=== PATIENT | male | born 1940 | race Caucasian/White ===

== ENCOUNTER 2016-04-20 08:13 | Inpatient (IN) | payer OTHER ==
[2016-04-20] VITALS (13 sets, daily range): BP systolic 122–162; BP diastolic 71–102
[~2016-04-20] VITALS: Ht 180.3 cm; Wt 112.8 kg
[~2016-04-20 08:13] MED LIST: ALLOPURINOL100 MG PO; AMLODIPINE BESYL5 MG PO; ASPIR 8181 M1 PO; BACTRIM,SEPT1 TABLET PO; BETAMETHASONE D45 G1 TP; BUSPAR10 MG PO; CITALOPRAM HBR20 MG PO; CITALOPRAM HBR40 MG PO; CLOPIDOGREL75 MG PO; COZAAR50 MG PO; HYZAAR 100-21 TABLET PO; IMDUR30 MG PO; IRON18 MG PO; LANTUS100 UNIT/1 SQ; LASIX10 MG PO; LIPITOR40 MG PO; LOPRESSOR100 M1 PO; LOPRESSOR50 MG PO; Lasix PO; MYRBETRIQ50 MG PO; NITROSTAT0.4 MG SL; PROTONIX40 MG PO; RANEXA500 MG PO; RANITIDINE HCL150 MG PO; TRILIPIX135 MG PO; VESICARE10 MG PO; VITAMIN D10000 UNIT PO; Vitamin D, Drisdol PO
[2016-04-20 08:36] LABS: POINT-OF-CARE METER ID UU13113778
[2016-04-20 08:53] LABS: EOSINOPHIL (%) 0.3 % (0-5); HEMATOCRIT 42.6 % (38.0-50.0); IMMATURE GRANULOCYTE (%) 0.4 % (0.0-0.7); IMMATURE GRANULOCYTE COUNT 0.6 K/uL; LYMPHOCYTE COUNT 1.1 K/uL (1.0-2.8); MCHC 35.2 G/DL (30.0-36.0); MCV 79.6 FL (86-99); MEAN PLAT.VOLUME 10.8 uM^3 (9.0-12.4); MONOCYTE (%) 3.5 % (3-12); MONOCYTE COUNT 0.5 K/uL (0-0.8); NEUTROPHIL (%) 87.9 % (45-76); PLATELET COUNT 206 K/uL (156-360); RBC DIS.WIDTH-CV 13.9 % (11.8-14.6); RBC DIS.WIDTH-SD 39.5 % (39-53); RED BLOOD COUNT 5.35 M/uL (4.00-5.50)
[2016-04-20 09:04] LABS: CHLORIDE 103 mEq/L (99-109); POTASSIUM 4.5 mEq/L (3.7-5.4); SODIUM 136 mEq/L (136-147)
[2016-04-20 09:05] LABS: WHITE BLOOD COUNT 13.7 K/uL (4.1-10.2)
[2016-04-20 09:07] LABS: ANION GAP 14 MEQ/L (2-14)
[2016-04-20 09:09] LABS: GFR ESTIMATE (CALCULATED) 28 mL/min/
[2016-04-20 09:10] LABS: UREA NITROGEN (BUN) 27 mg/dL (9-23)
[2016-04-20 09:13] LABS: GLUCOSE 428 mg/dL (70-99)
[2016-04-20 09:37] LABS: ALKALINE PHOSPHATASE 180 IU/L (3-129)
[2016-04-20 09:40] LABS: DIRECT BILIRUBIN 0.4 mg/dL (0.0-0.3)
[2016-04-20 09:43] LABS: TROP-I INTERPRETATION NEGATIVE; TROPONIN-I 0.03 ng/mL (0.0-0.30)
[2016-04-20 10:10] LABS: INFLUENZA A VIRAL ANTIGEN POSITIVE; INFLUENZA B VIRAL ANTIGEN NEGATIVE
[2016-04-20 10:11] LABS: CARBON DIOXIDE (BICARBONATE) 18.9 MEQ/L (20-31)
[2016-04-20 11:31] LABS: ADD MIUA? YES; BILIRUBIN NEGATIVE; BLOOD MODERATE; COLOR YELLOW ((YELLOW)); GLUCOSE (STRIP) >=500; KETONES NEGATIVE; LEUKOCYTES MODERATE; NITRITE NEGATIVE; PROTEIN (STRIP) >=500; SPECIFIC GRAVITY 1.018 (1.000-1.030); UROBILINOGEN 0.2 MG/DL (0.2-1.0)
[2016-04-20 12:19] LABS: BACTERIA 3+ /HPF; EPITHELIAL CELLS RARE /HPF; MUCUS TRACE /LPF; RED BLOOD CELLS 20-30 /HPF (0-5); UCUL ADDED? YES; WHITE BLOOD CELLS TNTC /HPF (0-5); WHITE BLOOD CELLS CLUMP FEW /HPF (0-5)
[2016-04-20] MEDS ORDERED: DIAZEPAM5 MG PO (12:19)
[2016-04-20] MEDS ORDERED: BUSPAR10 MG PO (12:19)
[2016-04-20] MEDS ORDERED: IMDUR30 MG PO (12:20)
[2016-04-20] MEDS ORDERED: LOSARTAN POTASS50 MG PO (12:20)
[2016-04-20] MEDS ORDERED: MYRBETRIQ50 MG PO (12:20)
[2016-04-20] MEDS ORDERED: PLAVIX75 MG PO (12:20)
[2016-04-20 12:44] LABS: POINT-OF-CARE METER ID UU13113702
[2016-04-20 18:31] LABS: TROP-I INTERPRETATION NEGATIVE; TROPONIN-I 0.05 ng/mL (0.0-0.30)
[2016-04-21 01:16] LABS: TROP-I INTERPRETATION NEGATIVE; TROPONIN-I 0.04 ng/mL (0.0-0.30)
[2016-04-21 04:34] LABS: BASE EXCESS -9.8 mEq/L (-3 to +3); BICARBONATE 15.3 mEq/L (22-26); CARBOXY HGB 1.8 % (0-5); METHEMOGLOBIN 1.3 % (0-1.5); PCO2 31 mm Hg (35-45); PO2 93 mm Hg (80-100)
[2016-04-21 04:35] LABS: COMMENTS - BLOOD GASES A+C+; DEVICE NC; O2 FLOW 3 L/MIN; SITE RR; TOTAL RESP RATE 26 resp/min
[2016-04-21 04:49] LABS: POINT-OF-CARE METER ID UU14174225
[2016-04-21 04:53] LABS: HEMATOCRIT 41.5 % (38.0-50.0); MCH 27.5 PG (29.0-34.0); MCHC 34.2 G/DL (30.0-36.0); MCV 80.3 FL (86-99); MEAN PLAT.VOLUME 10.7 uM^3 (9.0-12.4); PLATELET COUNT 173 K/uL (156-360); RBC DIS.WIDTH-CV 14.1 % (11.8-14.6); RBC DIS.WIDTH-SD 40.6 % (39-53); RED BLOOD COUNT 5.17 M/uL (4.00-5.50); WHITE BLOOD COUNT 9.3 K/uL (4.1-10.2)
[2016-04-21 05:04] LABS: CHLORIDE 103 mEq/L (99-109); POTASSIUM 4.3 mEq/L (3.7-5.4); SODIUM 135 mEq/L (136-147)
[2016-04-21 05:06] LABS: GLUCOSE 349 mg/dL (70-99)
[2016-04-21 05:07] LABS: ANION GAP 14 MEQ/L (2-14)
[2016-04-21 05:09] LABS: GFR ESTIMATE (CALCULATED) 27 mL/min/
[2016-04-21 05:11] LABS: UREA NITROGEN (BUN) 29 mg/dL (9-23)
[2016-04-21 07:34] VITALS: BP 132/86
[2016-04-21 07:56] LABS: POINT-OF-CARE METER ID UU14174225
[2016-04-21 11:26] VITALS: BP 102/69
[2016-04-21 11:28] LABS: POINT-OF-CARE METER ID UU14174225
[2016-04-21 15:59] VITALS: BP 108/65
[2016-04-21 16:35] LABS: POINT-OF-CARE METER ID UU14188625
[2016-04-21 19:38] VITALS: BP 108/66
[2016-04-21 23:49] VITALS: BP 118/71
[2016-04-22] VITALS (7 sets, daily range): BP systolic 100–126; BP diastolic 58–75
[2016-04-22 08:44] LABS: POINT-OF-CARE METER ID UU14174225
[2016-04-22 09:21] LABS: ANION GAP 10 MEQ/L (2-14); CHLORIDE 101 MEQ/L (99-109); GLUCOSE 339 mg/dL (70-99); POTASSIUM 4.5 MEQ/L (3.7-5.4); SAMPLE HEMOLYSIS CHECK 0; SAMPLE ICTERIC CHECK 0; SAMPLE LIPEMIA CHECK 0; SODIUM 130 MEQ/L (136-147)
[2016-04-22 09:22] LABS: GFR ESTIMATE (CALCULATED) 21 mL/min/; UREA NITROGEN (BUN) 45 mg/dL (9-23)
[2016-04-22 12:19] LABS: POINT-OF-CARE METER ID UU14188625
[2016-04-22 12:43] LABS: Estimated Average Glucose 237 mg/dL (70-123); HEMOGLOBIN A1c (GLYCOHEMOGLOB) 9.9 % HGB (Below 5.7)
[2016-04-22 17:16] LABS: POINT-OF-CARE METER ID UU14174225
[2016-04-23 03:33] VITALS: BP 132/80
[2016-04-23 07:30] LABS: ANION GAP 9 MEQ/L (2-14); CHLORIDE 101 MEQ/L (99-109); GFR ESTIMATE (CALCULATED) 19 mL/min/; GLUCOSE 339 mg/dL (70-99); POTASSIUM 4.2 MEQ/L (3.7-5.4); SAMPLE HEMOLYSIS CHECK 0; SAMPLE ICTERIC CHECK 0; SAMPLE LIPEMIA CHECK 0; SODIUM 128 MEQ/L (136-147); UREA NITROGEN (BUN) 49 mg/dL (9-23)
[2016-04-23 07:39] VITALS: BP 137/77
[2016-04-23 07:42] LABS: EOSINOPHIL (%) 0.1 % (0-5); HEMATOCRIT 31.9 % (38.0-50.0); IMMATURE GRANULOCYTE (%) 0.3 % (0.0-0.7); LYMPHOCYTE COUNT 0.5 K/uL (1.0-2.8); MCH 27.6 PG (29.0-34.0); MCHC 34.5 G/DL (30.0-36.0); MCV 80.2 FL (86-99); MEAN PLAT.VOLUME 11.2 uM^3 (9.0-12.4); MONOCYTE (%) 7.1 % (3-12); MONOCYTE COUNT 0.6 K/uL (0-0.8); NEUTROPHIL (%) 86.9 % (45-76); NEUTROPHIL COUNT 7.5 K/uL (1.8-6.4); PLATELET COUNT 136 K/uL (156-360); RBC DIS.WIDTH-CV 13.6 % (11.8-14.6); RBC DIS.WIDTH-SD 39.6 % (39-53); WHITE BLOOD COUNT 8.6 K/uL (4.1-10.2)
[2016-04-23 07:54] LABS: RED BLOOD COUNT 3.98 M/uL (4.00-5.50)
[2016-04-23 11:08] VITALS: BP 143/83
[2016-04-23 15:13] VITALS: BP 135/81
[2016-04-23 19:46] VITALS: BP 130/78
[2016-04-23 21:42] LABS: POINT-OF-CARE METER ID UU14188625
[2016-04-24] VITALS (7 sets, daily range): BP systolic 140–165; BP diastolic 84–98
[2016-04-24 07:26] LABS: ANION GAP 7 MEQ/L (2-14); CHLORIDE 106 MEQ/L (99-109); GFR ESTIMATE (CALCULATED) 19 mL/min/; GLUCOSE 107 mg/dL (70-99); POTASSIUM 4.2 MEQ/L (3.7-5.4); SAMPLE HEMOLYSIS CHECK 0; SAMPLE ICTERIC CHECK 0; SAMPLE LIPEMIA CHECK 0; SODIUM 135 MEQ/L (136-147); UREA NITROGEN (BUN) 50 mg/dL (9-23)
[2016-04-24 11:32] LABS: POINT-OF-CARE METER ID UU14174225
[2016-04-24 16:49] LABS: POINT-OF-CARE METER ID UU14174225
[2016-04-24 21:15] LABS: POINT-OF-CARE METER ID UU14174225
[2016-04-25 04:07] VITALS: BP 142/84
[2016-04-25 07:05] LABS: ANION GAP 10 MEQ/L (2-14); CHLORIDE 108 MEQ/L (99-109); GFR ESTIMATE (CALCULATED) 19 mL/min/; GLUCOSE 159 mg/dL (70-99); POTASSIUM 4.3 MEQ/L (3.7-5.4); SAMPLE HEMOLYSIS CHECK 0; SAMPLE ICTERIC CHECK 0; SAMPLE LIPEMIA CHECK 0; SODIUM 138 MEQ/L (136-147); UREA NITROGEN (BUN) 51 mg/dL (9-23)
[2016-04-25 07:43] VITALS: BP 140/82
[2016-04-25 11:52] VITALS: BP 118/71
[2016-04-25 12:38] LABS: POINT-OF-CARE METER ID UU14174225
[2016-04-25] MEDS ORDERED: VANTIN200 MG PO (12:49)
[2016-04-25] MEDS ORDERED: LEVEMIR100 UNIT/2 SC (12:59)
== END 2016-04-25 16:13 | disposition home health service (06) | DRG 871 ==
LOC: EME 08:13 → EDOF 11:50 → 5SOUTH 11:50 → EDOF 12:02 → 5SOUTH 16:53
PROVIDERS: Emergency Medicine; Hospitalist; Internal Medicine Nephrology
DX: A41.51 Sepsis due to Escherichia coli [E. coli] (principal); N17.0 Acute kidney failure with tubular necrosis; J96.01 Acute respiratory failure with hypoxia; N39.0 Urinary tract infection, site not specified; R65.20 Severe sepsis without septic shock; J10.1 Influenza due to other identified influenza virus with other respiratory manifestations; J20.9 Acute bronchitis, unspecified; I13.0 Hypertensive heart and chronic kidney disease with heart failure and stage 1 through stage 4 chronic kidney disease, or unspecified chronic kidney disease; I50.32 Chronic diastolic (congestive) heart failure; I25.810 Atherosclerosis of coronary artery bypass graft(s) without angina pectoris; E87.5 Hyperkalemia; N18.3 Chronic kidney disease, stage 3 (moderate); E11.22 Type 2 diabetes mellitus with diabetic chronic kidney disease; E11.21 Type 2 diabetes mellitus with diabetic nephropathy; E11.40 Type 2 diabetes mellitus with diabetic neuropathy, unspecified; E78.5 Hyperlipidemia, unspecified; G47.33 Obstructive sleep apnea (adult) (pediatric); N28.1 Cyst of kidney, acquired; N31.9 Neuromuscular dysfunction of bladder, unspecified; R32 Unspecified urinary incontinence; Z96.0 Presence of urogenital implants; Z96.651 Presence of right artificial knee joint; Z77.22 Contact with and (suspected) exposure to environmental tobacco smoke (acute) (chronic); Z95.1 Presence of aortocoronary bypass graft; Z95.5 Presence of coronary angioplasty implant and graft; Z79.4 Long term (current) use of insulin; Z79.02 Long term (current) use of antithrombotics/antiplatelets; Z79.82 Long term (current) use of aspirin; Z98.1 Arthrodesis status
CPT/HCPCS: 36600; 71010; 74176; 76770; 80048; 80069; 80076; 81003; 82009; 82010; 82570; 82803; 82948; 83036; 83605; 83880; 84156; 84484; 85025; 85027; 87040; 87077; 87086; 87186; 87502; 87801; 93005; 94640; 94640 76; 94760; 94799; 99202; 99281; 99285; J0696; J1650; J1815; J2060; J2405; J2543; J3370; J7030; J7050; J7120; J7512

== ENCOUNTER 2016-07-26 19:04 | Emergency (ER) | payer OTHER ==
[~2016-07-26] VITALS: Ht 180.3 cm; Wt 117.4 kg
[~2016-07-26 19:04] MED LIST changes: +DIAZEPAM5 MG PO; +LEVEMIR100 UNIT/2 SC; +LOSARTAN POTASS50 MG PO; +PLAVIX75 MG PO; +VANTIN200 MG PO
[2016-07-26 22:59] VITALS: BP 183/96
== END 2016-07-26 23:00 | disposition home or self-care (01) ==
LOC: EME 19:04
PROC: 0HQDXZZ Repair Right Lower Arm Skin, External Approach (ICD-10-PCS; principal; 2016-07-26)
DX: S51.011A Laceration without foreign body of right elbow, initial encounter (principal); W01.198A Fall on same level from slipping, tripping and stumbling with subsequent striking against other object, initial encounter; Y93.H9 Activity, other involving exterior property and land maintenance, building and construction; Y92.007 Garden or yard of unspecified non-institutional (private) residence as the place of occurrence of the external cause; E11.9 Type 2 diabetes mellitus without complications; I25.2 Old myocardial infarction; Z79.82 Long term (current) use of aspirin; Z79.02 Long term (current) use of antithrombotics/antiplatelets; Z96.651 Presence of right artificial knee joint
CPT/HCPCS: 73080; 99281; 99284

== ENCOUNTER 2016-09-20 17:22 | Inpatient (IN) | payer OTHER ==
[~2016-09-20] VITALS: Ht 180.3 cm; Wt 116.3 kg
[2016-09-20 18:07] LABS: HEMATOCRIT 47.9 % (38.0-50.0); MCH 26.2 PG (29.0-34.0); MCHC 32.4 G/DL (30.0-36.0); MCV 80.9 FL (86-99); MEAN PLAT.VOLUME 10.2 uM^3 (9.0-12.4); PLATELET COUNT 200 K/uL (156-360); RBC DIS.WIDTH-CV 14.6 % (11.8-14.6); RBC DIS.WIDTH-SD 42.4 % (39-53); RED BLOOD COUNT 5.92 M/uL (4.00-5.50); WHITE BLOOD COUNT 11.1 K/uL (4.1-10.2)
[2016-09-20 18:17] LABS: CHLORIDE 114 mEq/L (99-109); POTASSIUM 4.1 mEq/L (3.7-5.4); SODIUM 139 mEq/L (136-147)
[2016-09-20 18:19] LABS: GLUCOSE 163 mg/dL (70-99)
[2016-09-20 18:20] LABS: ANION GAP 10 MEQ/L (2-14)
[2016-09-20 18:21] LABS: TOTAL BILIRUBIN 0.7 mg/dL (0.0-1.0)
[2016-09-20 18:22] LABS: ALKALINE PHOSPHATASE 178 IU/L (3-129)
[2016-09-20 18:23] LABS: GFR ESTIMATE (CALCULATED) 21 mL/min/
[2016-09-20 18:24] LABS: UREA NITROGEN (BUN) 56 mg/dL (9-23)
[2016-09-20 18:26] LABS: LIPASE 35 U/L (1.0-51.0)
[2016-09-20 19:38] LABS: TROP-I INTERPRETATION NEGATIVE; TROPONIN-I 0.03 ng/mL (0.0-0.30)
[2016-09-20 20:29] LABS: ADD MIUA? YES; BILIRUBIN NEGATIVE; BLOOD SMALL; COLOR YELLOW ((YELLOW)); GLUCOSE (STRIP) >=500; KETONES NEGATIVE; LEUKOCYTES NEGATIVE; NITRITE NEGATIVE; PROTEIN (STRIP) >=500; SPECIFIC GRAVITY 1.023 (1.000-1.030); UROBILINOGEN 0.2 MG/DL (0.2-1.0)
[2016-09-20 20:36] LABS: BACTERIA RARE /HPF; EPITHELIAL CELLS RARE /HPF; MUCUS 1+ /LPF; RED BLOOD CELLS NONE SEEN /HPF (0-5); UCUL ADDED? NO
[2016-09-21 04:15] VITALS: BP 150/84
[2016-09-21 06:55] VITALS: BP 124/72
[2016-09-21 07:06] LABS: ANION GAP 10 MEQ/L (2-14); CHLORIDE 115 MEQ/L (99-109); GFR ESTIMATE (CALCULATED) 21 mL/min/; GLUCOSE 135 mg/dL (70-99); POTASSIUM 4.1 MEQ/L (3.7-5.4); SAMPLE HEMOLYSIS CHECK 0; SAMPLE ICTERIC CHECK 0; SAMPLE LIPEMIA CHECK 0; SODIUM 142 MEQ/L (136-147); UREA NITROGEN (BUN) 54 mg/dL (9-23)
[2016-09-21 07:21] LABS: EOSINOPHIL (%) 3.2 % (0-5); EOSINOPHIL COUNT 0.4 K/uL (0-0.3); HEMATOCRIT 38.8 % (38.0-50.0); IMMATURE GRANULOCYTE (%) 0.5 % (0.0-0.7); IMMATURE GRANULOCYTE COUNT 0.1 K/uL; INSTRUMENT ABS NEUTROPHIL CT 7.7 K/uL; LYMPHOCYTE COUNT 1.7 K/uL (1.0-2.8); MCH 26.6 PG (29.0-34.0); MCV 83.3 FL (86-99); MEAN PLAT.VOLUME 10.2 uM^3 (9.0-12.4); MONOCYTE (%) 9.4 % (3-12); NEUTROPHIL COUNT 7.7 K/uL (1.8-6.4); PLATELET COUNT 150 K/uL (156-360); RBC DIS.WIDTH-CV 14.6 % (11.8-14.6); RBC DIS.WIDTH-SD 44.5 % (39-53); WHITE BLOOD COUNT 10.8 K/uL (4.1-10.2)
[2016-09-21 07:30] LABS: RED BLOOD COUNT 4.66 M/uL (4.00-5.50)
[2016-09-21 15:35] VITALS: BP 126/75
[2016-09-21] MEDS ORDERED: METOPROLOL TAR100 MG PO (16:11)
[2016-09-21] MEDS ORDERED: BUSPAR10 MG PO (16:12)
[2016-09-21 20:50] VITALS: BP 151/84
[2016-09-21 21:00] VITALS: BP 139/87
[2016-09-22 00:02] VITALS: BP 148/76
[2016-09-22 05:55] LABS: EOSINOPHIL (%) 3.1 % (0-5); EOSINOPHIL COUNT 0.3 K/uL (0-0.3); HEMATOCRIT 37.4 % (38.0-50.0); IMMATURE GRANULOCYTE (%) 0.7 % (0.0-0.7); IMMATURE GRANULOCYTE COUNT 0.1 K/uL; INSTRUMENT ABS NEUTROPHIL CT 5.9 K/uL; LYMPHOCYTE COUNT 1.5 K/uL (1.0-2.8); MCH 28.1 PG (29.0-34.0); MCHC 33.4 G/DL (30.0-36.0); MEAN PLAT.VOLUME 10.4 uM^3 (9.0-12.4); MONOCYTE (%) 10.7 % (3-12); MONOCYTE COUNT 0.9 K/uL (0-0.8); NEUTROPHIL (%) 67.8 % (45-76); NEUTROPHIL COUNT 5.9 K/uL (1.8-6.4); PLATELET COUNT 148 K/uL (156-360); RBC DIS.WIDTH-CV 14.7 % (11.8-14.6); RBC DIS.WIDTH-SD 45.1 % (39-53); RED BLOOD COUNT 4.45 M/uL (4.00-5.50); WHITE BLOOD COUNT 8.7 K/uL (4.1-10.2)
[2016-09-22 06:22] LABS: ANION GAP 9 MEQ/L (2-14); CHLORIDE 114 MEQ/L (99-109); GFR ESTIMATE (CALCULATED) 21 mL/min/; GLUCOSE 113 mg/dL (70-99); POTASSIUM 4.4 MEQ/L (3.7-5.4); SAMPLE HEMOLYSIS CHECK 0; SAMPLE ICTERIC CHECK 0; SAMPLE LIPEMIA CHECK 0; SODIUM 140 MEQ/L (136-147); UREA NITROGEN (BUN) 51 mg/dL (9-23)
[2016-09-22 06:51] VITALS: BP 156/74
[2016-09-22 15:57] VITALS: BP 144/76
[2016-09-22 16:34] LABS: POINT-OF-CARE METER ID UU13113725
[2016-09-22 22:17] LABS: POINT-OF-CARE METER ID UU13113725; POINT-OF-CARE USER ID 610071303
[2016-09-23 00:27] VITALS: BP 134/59
[2016-09-23 06:36] LABS: EOSINOPHIL (%) 1.4 % (0-5); EOSINOPHIL COUNT 0.1 K/uL (0-0.3); HEMATOCRIT 35.4 % (38.0-50.0); IMMATURE GRANULOCYTE (%) 0.7 % (0.0-0.7); IMMATURE GRANULOCYTE COUNT 0.1 K/uL; INSTRUMENT ABS NEUTROPHIL CT 6.7 K/uL; LYMPHOCYTE COUNT 1.2 K/uL (1.0-2.8); MCH 27.3 PG (29.0-34.0); MCHC 33.1 G/DL (30.0-36.0); MCV 82.5 FL (86-99); MEAN PLAT.VOLUME 10.2 uM^3 (9.0-12.4); MONOCYTE (%) 12.6 % (3-12); MONOCYTE COUNT 1.2 K/uL (0-0.8); NEUTROPHIL (%) 72.3 % (45-76); NEUTROPHIL COUNT 6.7 K/uL (1.8-6.4); PLATELET COUNT 145 K/uL (156-360); RBC DIS.WIDTH-CV 14.7 % (11.8-14.6); RBC DIS.WIDTH-SD 44.1 % (39-53); RED BLOOD COUNT 4.29 M/uL (4.00-5.50); WHITE BLOOD COUNT 9.2 K/uL (4.1-10.2)
[2016-09-23 06:58] LABS: ANION GAP 10 MEQ/L (2-14); CHLORIDE 114 MEQ/L (99-109); GFR ESTIMATE (CALCULATED) 23 mL/min/; GLUCOSE 132 mg/dL (70-99); POTASSIUM 4.7 MEQ/L (3.7-5.4); SAMPLE HEMOLYSIS CHECK 0; SAMPLE ICTERIC CHECK 0; SAMPLE LIPEMIA CHECK 0; SODIUM 139 MEQ/L (136-147); UREA NITROGEN (BUN) 47 mg/dL (9-23)
[2016-09-23 08:52] VITALS: BP 148/75
== END 2016-09-23 15:37 | disposition home or self-care (01) | DRG 392 ==
LOC: EME 17:22 → 5EAST 22:47 → EDOF 22:47 → 5EAST 09-21 00:43
PROVIDERS: Family Medicine
DX: K57.32 Diverticulitis of large intestine without perforation or abscess without bleeding (principal); N17.9 Acute kidney failure, unspecified; N18.3 Chronic kidney disease, stage 3 (moderate); I25.10 Atherosclerotic heart disease of native coronary artery without angina pectoris; E78.5 Hyperlipidemia, unspecified; E11.22 Type 2 diabetes mellitus with diabetic chronic kidney disease; I13.0 Hypertensive heart and chronic kidney disease with heart failure and stage 1 through stage 4 chronic kidney disease, or unspecified chronic kidney disease; F41.9 Anxiety disorder, unspecified; N28.1 Cyst of kidney, acquired; K80.20 Calculus of gallbladder without cholecystitis without obstruction; K21.9 Gastro-esophageal reflux disease without esophagitis; M19.90 Unspecified osteoarthritis, unspecified site; E87.2 Acidosis; R26.2 Difficulty in walking, not elsewhere classified; M25.569 Pain in unspecified knee; G89.29 Other chronic pain
CPT/HCPCS: 74176; 80048; 80053; 81003; 82948; 83690; 84484; 85025; 85027; 93005; 99281; 99285; J0744; J1170; J1644; J1815; J2060; J2405; J3010; J7030; S0030

== ENCOUNTER 2017-02-08 17:52 | Emergency (ER) | payer OTHER ==
[~2017-02-08] VITALS: Ht 180.3 cm; Wt 116.1 kg
[~2017-02-08 17:52] MED LIST changes: +METOPROLOL TAR100 MG PO
[2017-02-08 18:35] LABS: HEMATOCRIT 34.3 % (38.0-50.0); MCH 28.8 PG (29.0-34.0); MCHC 34.7 G/DL (30.0-36.0); MCV 83.1 FL (86-99); MEAN PLAT.VOLUME 9.7 uM^3 (9.0-12.4); PLATELET COUNT 183 K/uL (156-360); RBC DIS.WIDTH-CV 13.3 % (11.8-14.6); RBC DIS.WIDTH-SD 40.2 % (39-53); RED BLOOD COUNT 4.13 M/uL (4.00-5.50)
[2017-02-08 18:44] LABS: CHLORIDE 108 mEq/L (99-109); POTASSIUM 4.9 mEq/L (3.7-5.4); SODIUM 137 mEq/L (136-147)
[2017-02-08 18:46] LABS: GLUCOSE 226 mg/dL (70-99)
[2017-02-08 18:48] LABS: ANION GAP 11 MEQ/L (2-14)
[2017-02-08 18:50] LABS: GFR ESTIMATE (CALCULATED) 21 mL/min/
[2017-02-08 18:51] LABS: UREA NITROGEN (BUN) 50 mg/dL (9-23)
[2017-02-08 19:54] LABS: ADD MIUA? YES; BILIRUBIN NEGATIVE; BLOOD SMALL; COLOR YELLOW ((YELLOW)); GLUCOSE (STRIP) >=500; KETONES NEGATIVE; LEUKOCYTES NEGATIVE; NITRITE NEGATIVE; PROTEIN (STRIP) >=500; SPECIFIC GRAVITY 1.016 (1.000-1.030); UROBILINOGEN 0.2 MG/DL (0.2-1.0)
[2017-02-08 20:06] LABS: BACTERIA RARE /HPF; EPITHELIAL CELLS RARE /HPF; GRANULAR CASTS 0-5 /LPF; HYALINE CASTS 0-5 /LPF; MUCUS TRACE /LPF; RED BLOOD CELLS 0-5 /HPF (0-5); UCUL ADDED? NO; WHITE BLOOD CELLS 0-5 /HPF (0-5)
[2017-02-08 20:34] VITALS: BP 144/91
== END 2017-02-08 21:12 | disposition home or self-care (01) ==
LOC: EME 17:52
PROVIDERS: Emergency Medicine
DX: S09.90XA Unspecified injury of head, initial encounter (principal); W01.0XXA Fall on same level from slipping, tripping and stumbling without subsequent striking against object, initial encounter; F41.9 Anxiety disorder, unspecified; I12.9 Hypertensive chronic kidney disease with stage 1 through stage 4 chronic kidney disease, or unspecified chronic kidney disease; E11.22 Type 2 diabetes mellitus with diabetic chronic kidney disease; N18.9 Chronic kidney disease, unspecified
CPT/HCPCS: 70450; 80048; 81003; 85027; 99281; 99285

== ENCOUNTER 2017-03-23 00:57 | Inpatient (IN) | payer OTHER ==
[~2017-03-23] VITALS: Ht 180.3 cm; Wt 119.9 kg
[2017-03-23 01:27] LABS: HEMATOCRIT 32.3 % (38.0-50.0); HEMOGLOBIN 10.9 G/DL (12.5-16.6); MCH 28.3 PG (29.0-34.0); MCHC 33.7 G/DL (30.0-36.0); MCV 83.9 FL (86-99); PLATELET COUNT 200 K/uL (156-360); RBC DIS.WIDTH-CV 13.4 % (11.8-14.6); RBC DIS.WIDTH-SD 40.8 % (39-53); RED BLOOD COUNT 3.85 M/uL (4.00-5.50); WHITE BLOOD COUNT 12.2 K/uL (4.1-10.2)
[2017-03-23 01:48] LABS: CHLORIDE 115 mEq/L (99-109); POTASSIUM 4.6 mEq/L (3.7-5.4); SODIUM 142 mEq/L (136-147)
[2017-03-23 01:50] LABS: GLUCOSE 202 mg/dL (70-99)
[2017-03-23 01:54] LABS: GFR ESTIMATE (CALCULATED) 16 mL/min/ (58.99-99999)
[2017-03-23 01:55] LABS: UREA NITROGEN (BUN) 54 mg/dL (9-23)
[2017-03-23 02:47] LABS: BICARBONATE 17.5 mEq/L (22-26); CARBOXY HGB 1.5 % (0-5); COMMENTS - BLOOD GASES A+C+; FI02 21 %; METHEMOGLOBIN 1.2 % (0-1.5); PCO2 31 mm Hg (35-45); PO2 64 mm Hg (80-100); SITE RR; pH 7.36 (7.35-7.45)
[2017-03-23 02:50] LABS: APPEARANCE CLEAR ((CLEAR)); BILIRUBIN NEGATIVE; BLOOD MODERATE; COLOR YELLOW ((YELLOW)); GLUCOSE (STRIP) 150; KETONES NEGATIVE; LEUKOCYTES NEGATIVE; NITRITE NEGATIVE; PROTEIN (STRIP) >=500; SPECIFIC GRAVITY 1.018 (1.000-1.030); UROBILINOGEN 0.2 MG/DL (0.2-1.0)
[2017-03-23 02:59] LABS: ALBUMIN 3.4 g/dL (3.2-4.8)
[2017-03-23 03:02] LABS: TOTAL PROTEIN 6.5 g/dL (6.4-8.3)
[2017-03-23 03:03] LABS: TOTAL BILIRUBIN 0.5 mg/dL (0.0-1.0)
[2017-03-23 03:04] LABS: ALKALINE PHOSPHATASE 194 IU/L (3-129)
[2017-03-23 03:07] LABS: AST (GOT) 12 IU/L (2-34); DIRECT BILIRUBIN 0.2 mg/dL (0.0-0.3)
[2017-03-23 03:08] LABS: ALT (GPT) 15 IU/L (3-49); LIPASE 53 U/L (1.0-51.0)
[2017-03-23 03:09] LABS: TROP-I INTERPRETATION NEGATIVE; TROPONIN-I 0.05 ng/mL (0.0-0.30)
[2017-03-23 03:32] LABS: RED BLOOD CELLS 0-5 /HPF (0-5); WHITE BLOOD CELLS 0-5 /HPF (0-5)
[2017-03-23 03:33] LABS: BACTERIA 2+ /HPF; EPITHELIAL CELLS 1+ /HPF; UCUL ADDED? YES
[2017-03-23 03:34] LABS: MUCUS RARE /LPF
[2017-03-23] MEDS ORDERED: ATORVASTATIN CA40 MG PO (09:50)
[2017-03-23] MEDS ORDERED: LOSARTAN POTASS25 MG PO (09:52)
[2017-03-23] MEDS ORDERED: LOPRESSOR100 M1 PO (09:53)
[2017-03-23] MEDS ORDERED: ALPRAZOLAM1 MG PO (09:54)
[2017-03-23] MEDS ORDERED: ENDOCET 5-3251 EACH PO (09:55)
[2017-03-23] MEDS ORDERED: CITALOPRAM HBR40 MG PO (09:56)
[2017-03-23] MEDS ORDERED: AMLODIPINE BESY10 MG PO (09:56)
[2017-03-23] MEDS ORDERED: MYRBETRIQ50 MG PO (09:57)
[2017-03-23] MEDS ORDERED: RANITIDINE HCL150 MG PO (09:58)
[2017-03-23] MEDS ORDERED: PANTOPRAZOLE SO40 MG PO (09:58)
[2017-03-23] MEDS ORDERED: IMDUR30 MG PO (09:59)
[2017-03-23 11:53] VITALS: BP 166/78
[2017-03-23 15:17] LABS: CREATINE KINASE 111 IU/L (1-294); TOTAL CK 111 IU/L (1-294)
[2017-03-23 15:40] LABS: CK-MB 4.9 ng/mL (0.0-4.9); CKMB RELATIVE INDEX 4.4 (0.0-3.9)
[2017-03-23 20:44] VITALS: BP 140/76
[2017-03-23 21:05] LABS: UR CREATININE CONCENTRATION 135.8 MG/DL
[2017-03-24] VITALS (7 sets, daily range): BP systolic 123–169; BP diastolic 72–87
[2017-03-24 06:17] LABS: BASOPHIL (%) 0.5 % (0-1); BASOPHIL COUNT 0.1 K/uL (0-0.1); EOSINOPHIL (%) 2.3 % (0-5); EOSINOPHIL COUNT 0.3 K/uL (0-0.3); HEMATOCRIT 31.9 % (38.0-50.0); HEMOGLOBIN 10.4 G/DL (12.5-16.6); LYMPHOCYTE (%) 11.9 % (15-42); LYMPHOCYTE COUNT 1.5 K/uL (1.0-2.8); MCHC 32.6 G/DL (30.0-36.0); MONOCYTE (%) 10.5 % (3-12); MONOCYTE COUNT 1.3 K/uL (0-0.8); NEUTROPHIL (%) 73.8 % (45-76); NEUTROPHIL COUNT 9.2 K/uL (1.8-6.4); PLATELET COUNT 189 K/uL (156-360); RBC DIS.WIDTH-CV 13.5 % (11.8-14.6); RED BLOOD COUNT 3.71 M/uL (4.00-5.50); WHITE BLOOD COUNT 12.5 K/uL (4.1-10.2)
[2017-03-24 06:40] LABS: CHLORIDE 112 MEQ/L (99-109); CREATININE 4.1 MG/DL (0.6-1.3); GFR ESTIMATE (CALCULATED) 15 mL/min/ (58.99-99999); GLUCOSE 187 mg/dL (70-99); MAGNESIUM 1.6 mg/dl (1.3-2.7); PHOSPHORUS 4.3 mg/dL (2.5-4.9); SODIUM 140 MEQ/L (136-147); UREA NITROGEN (BUN) 60 mg/dL (9-23); URIC ACID 7.2 mg/dL (3.1-9.2)
[2017-03-25 03:08] VITALS: BP 126/71
[2017-03-25 07:28] LABS: CHLORIDE 109 MEQ/L (99-109); CREATININE 4.6 MG/DL (0.6-1.3); GFR ESTIMATE (CALCULATED) 13 mL/min/ (58.99-99999); GLUCOSE 157 mg/dL (70-99); POTASSIUM 4.8 MEQ/L (3.7-5.4); SODIUM 139 MEQ/L (136-147); UREA NITROGEN (BUN) 68 mg/dL (9-23)
[2017-03-25 08:19] VITALS: BP 152/70
[2017-03-25 12:03] VITALS: BP 122/70
[2017-03-26 00:06] VITALS: BP 147/79
[2017-03-26 07:53] LABS: BASOPHIL (%) 0.6 % (0-1); BASOPHIL COUNT 0.1 K/uL (0-0.1); EOSINOPHIL COUNT 0.3 K/uL (0-0.3); HEMATOCRIT 28.4 % (38.0-50.0); HEMOGLOBIN 9.4 G/DL (12.5-16.6); IMMATURE GRANULOCYTE (%) 1.2 % (0.0-0.7); LYMPHOCYTE (%) 14.6 % (15-42); LYMPHOCYTE COUNT 1.2 K/uL (1.0-2.8); MCH 28.1 PG (29.0-34.0); MCHC 33.1 G/DL (30.0-36.0); MONOCYTE (%) 12.4 % (3-12); NEUTROPHIL (%) 68.2 % (45-76); NEUTROPHIL COUNT 5.8 K/uL (1.8-6.4); PLATELET COUNT 190 K/uL (156-360); RBC DIS.WIDTH-CV 13.5 % (11.8-14.6); RED BLOOD COUNT 3.34 M/uL (4.00-5.50); WHITE BLOOD COUNT 8.4 K/uL (4.1-10.2)
[2017-03-26 08:21] LABS: ALBUMIN 2.8 G/DL (3.2-4.8); CHLORIDE 108 MEQ/L (99-109); POTASSIUM 4.7 MEQ/L (3.7-5.4); SODIUM 138 MEQ/L (136-147)
[2017-03-26 08:26] LABS: GFR ESTIMATE (CALCULATED) 12 mL/min/ (58.99-99999); GLUCOSE 132 mg/dL (70-99); PHOSPHORUS 5.4 mg/dL (2.5-4.9); UREA NITROGEN (BUN) 72 mg/dL (9-23)
[2017-03-26 09:17] VITALS: BP 117/69
[2017-03-26 12:48] VITALS: BP 129/70
[2017-03-26 16:02] VITALS: BP 137/72
[2017-03-26 23:13] VITALS: BP 144/66
[2017-03-27 06:43] LABS: BASOPHIL (%) 0.5 % (0-1); EOSINOPHIL (%) 2.6 % (0-5); EOSINOPHIL COUNT 0.2 K/uL (0-0.3); HEMATOCRIT 28.4 % (38.0-50.0); HEMOGLOBIN 9.5 G/DL (12.5-16.6); IMMATURE GRANULOCYTE (%) 2.1 % (0.0-0.7); LYMPHOCYTE (%) 14.3 % (15-42); LYMPHOCYTE COUNT 1.3 K/uL (1.0-2.8); MCH 28.4 PG (29.0-34.0); MCHC 33.5 G/DL (30.0-36.0); MCV 84.8 FL (86-99); MONOCYTE (%) 13.2 % (3-12); MONOCYTE COUNT 1.2 K/uL (0-0.8); NEUTROPHIL (%) 67.3 % (45-76); NEUTROPHIL COUNT 5.9 K/uL (1.8-6.4); PLATELET COUNT 208 K/uL (156-360); RBC DIS.WIDTH-CV 13.4 % (11.8-14.6); RBC DIS.WIDTH-SD 41.2 % (39-53); RED BLOOD COUNT 3.35 M/uL (4.00-5.50); WHITE BLOOD COUNT 8.7 K/uL (4.1-10.2)
[2017-03-27 07:27] LABS: ALBUMIN 2.8 G/DL (3.2-4.8); CHLORIDE 107 MEQ/L (99-109); CREATININE 5.5 MG/DL (0.6-1.3); GFR ESTIMATE (CALCULATED) 11 mL/min/ (58.99-99999); GLUCOSE 160 mg/dL (70-99); PHOSPHORUS 6.1 mg/dL (2.5-4.9); POTASSIUM 4.6 MEQ/L (3.7-5.4); SODIUM 136 MEQ/L (136-147); UREA NITROGEN (BUN) 77 mg/dL (9-23)
[2017-03-27 09:05] VITALS: BP 164/91
[2017-03-27 11:00] LABS: HEPATITIS B SURFACE ANTIBODY Nonreactive; HEPATITIS B SURFACE ANTIGEN Nonreactive; HEPATITIS C ANTIBODY Nonreactive
[2017-03-27 11:09] LABS: ANTI-HEPATITIS B CORE (TOTAL) Nonreactive
[2017-03-27 21:36] VITALS: BP 131/72
[2017-03-28] VITALS: BP 131/72
[2017-03-28 03:47] VITALS: BP 120/69
[2017-03-28 06:37] LABS: BASOPHIL (%) 0.3 % (0-1); EOSINOPHIL (%) 2.1 % (0-5); EOSINOPHIL COUNT 0.2 K/uL (0-0.3); HEMATOCRIT 28.8 % (38.0-50.0); HEMOGLOBIN 9.2 G/DL (12.5-16.6); IMMATURE GRANULOCYTE (%) 1.5 % (0.0-0.7); LYMPHOCYTE (%) 15.2 % (15-42); LYMPHOCYTE COUNT 1.4 K/uL (1.0-2.8); MCH 27.1 PG (29.0-34.0); MCHC 31.9 G/DL (30.0-36.0); MONOCYTE (%) 11.1 % (3-12); MONOCYTE COUNT 1.1 K/uL (0-0.8); NEUTROPHIL (%) 69.8 % (45-76); NEUTROPHIL COUNT 6.6 K/uL (1.8-6.4); PLATELET COUNT 226 K/uL (156-360); RBC DIS.WIDTH-CV 13.4 % (11.8-14.6); RBC DIS.WIDTH-SD 41.7 % (39-53); RED BLOOD COUNT 3.39 M/uL (4.00-5.50); WHITE BLOOD COUNT 9.5 K/uL (4.1-10.2)
[2017-03-28 07:01] LABS: ALBUMIN 2.7 G/DL (3.2-4.8); CHLORIDE 106 MEQ/L (99-109); GFR ESTIMATE (CALCULATED) 14 mL/min/ (58.99-99999); GLUCOSE 123 mg/dL (70-99); PHOSPHORUS 5.7 mg/dL (2.5-4.9); POTASSIUM 4.6 MEQ/L (3.7-5.4); SODIUM 141 MEQ/L (136-147); UREA NITROGEN (BUN) 60 mg/dL (9-23)
[2017-03-28 07:02] LABS: CREATININE 4.5 MG/DL (0.6-1.3)
[2017-03-28 10:48] VITALS: BP 146/76
[2017-03-28 11:07] VITALS: BP 146/76
[2017-03-28 15:28] VITALS: BP 125/62
[2017-03-29 00:10] VITALS: BP 142/79
[2017-03-29 07:07] LABS: BASOPHIL (%) 0.4 % (0-1); BASOPHIL COUNT 0.1 K/uL (0-0.1); EOSINOPHIL (%) 1.2 % (0-5); EOSINOPHIL COUNT 0.2 K/uL (0-0.3); HEMATOCRIT 29.2 % (38.0-50.0); HEMOGLOBIN 9.8 G/DL (12.5-16.6); IMMATURE GRANULOCYTE (%) 1.9 % (0.0-0.7); LYMPHOCYTE (%) 11.5 % (15-42); LYMPHOCYTE COUNT 1.4 K/uL (1.0-2.8); MCH 28.2 PG (29.0-34.0); MCHC 33.6 G/DL (30.0-36.0); MCV 84.1 FL (86-99); MONOCYTE (%) 11.2 % (3-12); MONOCYTE COUNT 1.4 K/uL (0-0.8); NEUTROPHIL (%) 73.8 % (45-76); NEUTROPHIL COUNT 9.2 K/uL (1.8-6.4); PLATELET COUNT 236 K/uL (156-360); RBC DIS.WIDTH-CV 13.3 % (11.8-14.6); RBC DIS.WIDTH-SD 41.1 % (39-53); RED BLOOD COUNT 3.47 M/uL (4.00-5.50); WHITE BLOOD COUNT 12.4 K/uL (4.1-10.2)
[2017-03-29 07:30] VITALS: BP 147/78
[2017-03-29 07:31] LABS: CHLORIDE 99 MEQ/L (99-109); CREATININE 4.6 MG/DL (0.6-1.3); GFR ESTIMATE (CALCULATED) 13 mL/min/ (58.99-99999); GLUCOSE 142 mg/dL (70-99); POTASSIUM 4.4 MEQ/L (3.7-5.4); SODIUM 136 MEQ/L (136-147); UREA NITROGEN (BUN) 47 mg/dL (9-23)
[2017-03-29 15:40] VITALS: BP 120/65
[2017-03-30 00:27] VITALS: BP 119/68
[2017-03-30 06:43] LABS: BASOPHIL (%) 0.4 % (0-1); BASOPHIL COUNT 0.1 K/uL (0-0.1); EOSINOPHIL (%) 1.1 % (0-5); EOSINOPHIL COUNT 0.2 K/uL (0-0.3); HEMATOCRIT 31.6 % (38.0-50.0); HEMOGLOBIN 10.4 G/DL (12.5-16.6); IMMATURE GRANULOCYTE (%) 2.2 % (0.0-0.7); LYMPHOCYTE (%) 10.3 % (15-42); LYMPHOCYTE COUNT 1.4 K/uL (1.0-2.8); MCH 27.5 PG (29.0-34.0); MCHC 32.9 G/DL (30.0-36.0); MCV 83.6 FL (86-99); MONOCYTE (%) 8.6 % (3-12); MONOCYTE COUNT 1.2 K/uL (0-0.8); NEUTROPHIL (%) 77.4 % (45-76); NEUTROPHIL COUNT 10.6 K/uL (1.8-6.4); PLATELET COUNT 277 K/uL (156-360); RBC DIS.WIDTH-CV 13.2 % (11.8-14.6); RBC DIS.WIDTH-SD 40.4 % (39-53); RED BLOOD COUNT 3.78 M/uL (4.00-5.50); WHITE BLOOD COUNT 13.7 K/uL (4.1-10.2)
[2017-03-30 07:00] VITALS: BP 119/76
[2017-03-30 07:09] LABS: CHLORIDE 100 MEQ/L (99-109); CREATININE 5.2 MG/DL (0.6-1.3); GFR ESTIMATE (CALCULATED) 11 mL/min/ (58.99-99999); GLUCOSE 170 mg/dL (70-99); POTASSIUM 4.6 MEQ/L (3.7-5.4); SODIUM 135 MEQ/L (136-147); UREA NITROGEN (BUN) 55 mg/dL (9-23)
[2017-03-30 11:40] VITALS: BP 120/69
[2017-03-30 23:54] VITALS: BP 118/65
[2017-03-31 02:50] LABS: APPEARANCE CLOUDY ((CLEAR)); BILIRUBIN NEGATIVE; BLOOD LARGE; COLOR AMBER ((YELLOW)); GLUCOSE (STRIP) 150; KETONES NEGATIVE; LEUKOCYTES NEGATIVE; NITRITE NEGATIVE; PROTEIN (STRIP) >=500; SPECIFIC GRAVITY 1.015 (1.000-1.030); UROBILINOGEN 0.2 MG/DL (0.2-1.0)
[2017-03-31 03:30] LABS: EPITHELIAL CELLS RARE /HPF; MUCUS RARE /LPF; RED BLOOD CELLS TNTC /HPF (0-5); WHITE BLOOD CELLS 0-5 /HPF (0-5)
[2017-03-31 03:31] LABS: AMORPHOUS URATES CRYSTALS 2+; BACTERIA 2+ /HPF; HYALINE CASTS 0-5 /LPF; UCUL ADDED? YES
[2017-03-31 06:43] LABS: BASOPHIL (%) 0.3 % (0-1); EOSINOPHIL COUNT 0.2 K/uL (0-0.3); HEMATOCRIT 26.4 % (38.0-50.0); HEMOGLOBIN 8.7 G/DL (12.5-16.6); IMMATURE GRANULOCYTE (%) 1.7 % (0.0-0.7); LYMPHOCYTE (%) 10.6 % (15-42); MCH 27.7 PG (29.0-34.0); MCV 84.1 FL (86-99); MONOCYTE (%) 8.5 % (3-12); MONOCYTE COUNT 0.8 K/uL (0-0.8); NEUTROPHIL (%) 76.9 % (45-76); NEUTROPHIL COUNT 7.1 K/uL (1.8-6.4); PLATELET COUNT 200 K/uL (156-360); RBC DIS.WIDTH-CV 13.3 % (11.8-14.6); RBC DIS.WIDTH-SD 41.1 % (39-53); RED BLOOD COUNT 3.14 M/uL (4.00-5.50); WHITE BLOOD COUNT 9.3 K/uL (4.1-10.2)
[2017-03-31 08:00] VITALS: BP 136/80
[2017-03-31 16:00] VITALS: BP 126/71
[2017-03-31 23:43] VITALS: BP 132/70
[2017-04-01 07:15] VITALS: BP 133/73
[2017-04-01 09:13] LABS: BASOPHIL (%) 0.5 % (0-1); EOSINOPHIL (%) 2.4 % (0-5); EOSINOPHIL COUNT 0.2 K/uL (0-0.3); HEMATOCRIT 27.5 % (38.0-50.0); HEMOGLOBIN 9.2 G/DL (12.5-16.6); IMMATURE GRANULOCYTE (%) 2.9 % (0.0-0.7); LYMPHOCYTE (%) 13.1 % (15-42); LYMPHOCYTE COUNT 1.1 K/uL (1.0-2.8); MCH 28.5 PG (29.0-34.0); MCHC 33.5 G/DL (30.0-36.0); MCV 85.1 FL (86-99); MONOCYTE (%) 7.2 % (3-12); MONOCYTE COUNT 0.6 K/uL (0-0.8); NEUTROPHIL (%) 73.9 % (45-76); NEUTROPHIL COUNT 6.1 K/uL (1.8-6.4); PLATELET COUNT 220 K/uL (156-360); RBC DIS.WIDTH-CV 13.3 % (11.8-14.6); RBC DIS.WIDTH-SD 41.1 % (39-53); RED BLOOD COUNT 3.23 M/uL (4.00-5.50); WHITE BLOOD COUNT 8.2 K/uL (4.1-10.2)
[2017-04-01 09:29] LABS: ALBUMIN 2.6 G/DL (3.2-4.8); CHLORIDE 97 MEQ/L (99-109); CREATININE 5.3 MG/DL (0.6-1.3); GFR ESTIMATE (CALCULATED) 11 mL/min/ (58.99-99999); GLUCOSE 189 mg/dL (70-99); PHOSPHORUS 5.7 mg/dL (2.5-4.9); POTASSIUM 3.7 MEQ/L (3.7-5.4); SODIUM 132 MEQ/L (136-147); UREA NITROGEN (BUN) 41 mg/dL (9-23)
[2017-04-01] MEDS ORDERED: HEPARIN SO5000 UNIT4 SC (12:44)
[2017-04-01] MEDS ORDERED: DUONEB 2.5-0.5 M3 ML AEROSOL (12:44)
[2017-04-01] MEDS ORDERED: HALDOL2 MG PO (12:45)
[2017-04-01] MEDS ORDERED: TYLENOL REGULA325 MG PO (12:45)
[2017-04-01] MEDS ORDERED: FAMOTIDINE20 MG PO (12:46)
[2017-04-01] MEDS ORDERED: ENDOCET 5-3251 EACH PO (12:47)
[2017-04-01] MEDS ORDERED: NOVOLOG 10100 UNITS/ SC (12:47)
[2017-04-01] MEDS ORDERED: LORAZEPAM0.5 MG PO ×2 (12:47→12:57)
== END 2017-04-01 15:40 | DRG 674 ==
LOC: EME 00:57 → EDOF 04:25 → 2EASTP 04:25 → ENRESERV 04:43 → 2EASTP 11:37 → ENRESERV 03-30 14:33 → 2EAST 03-30 14:33
PROVIDERS: Emergency Medicine; Family Medicine; Internal Medicine Nephrology
DX: N17.9 Acute kidney failure, unspecified (principal); L03.116 Cellulitis of left lower limb; I13.11 Hypertensive heart and chronic kidney disease without heart failure, with stage 5 chronic kidney disease, or end stage renal disease; N18.6 End stage renal disease; I50.32 Chronic diastolic (congestive) heart failure; E11.22 Type 2 diabetes mellitus with diabetic chronic kidney disease; E11.621 Type 2 diabetes mellitus with foot ulcer; L97.522 Non-pressure chronic ulcer of other part of left foot with fat layer exposed; E87.2 Acidosis; F05 Delirium due to known physiological condition; D63.1 Anemia in chronic kidney disease; I25.10 Atherosclerotic heart disease of native coronary artery without angina pectoris; K21.9 Gastro-esophageal reflux disease without esophagitis; G47.33 Obstructive sleep apnea (adult) (pediatric); G62.9 Polyneuropathy, unspecified; F41.9 Anxiety disorder, unspecified; F32.9 Major depressive disorder, single episode, unspecified; M19.90 Unspecified osteoarthritis, unspecified site; R29.6 Repeated falls; Z96.651 Presence of right artificial knee joint; E66.9 Obesity, unspecified; Z68.36 Body mass index [BMI] 36.0-36.9, adult; I25.2 Old myocardial infarction; Z91.19 Patient's noncompliance with other medical treatment and regimen; Z91.81 History of falling; Z95.1 Presence of aortocoronary bypass graft; Z87.891 Personal history of nicotine dependence; Z87.442 Personal history of urinary calculi
CPT/HCPCS: 36600; 71046; 73590; 73630; 74176; 76770; 80048; 80069; 80076; 81003; 82550 91; 82553; 82570; 82803; 82948; 83605; 83690; 83735; 83880; 84100; 84156; 84484; 84550; 85025; 85027; 86704; 86706; 86803; 87040; 87077; 87086; 87186; 87340; 93005; 93971; 94640; 94640 76; 97530 GP; 99202; 99281; 99285; C1750; C1894; J0690; J0692; J1644; J1815; J1940; J2060; J2250; J3010; J7030; S0020

== ENCOUNTER 2017-07-04 22:12 | Emergency (ER) | payer OTHER ==
[~2017-07-04] VITALS: Ht 180.3 cm; Wt 102.7 kg
[~2017-07-04 22:12] MED LIST changes: +ALPRAZOLAM1 MG PO; +AMLODIPINE BESY10 MG PO; +ATORVASTATIN CA40 MG PO; +DUONEB 2.5-0.5 M3 ML AEROSOL; +ENDOCET 5-3251 EACH PO; +FAMOTIDINE20 MG PO; +HALDOL2 MG PO; +HEPARIN SO5000 UNIT4 SC; +LORAZEPAM0.5 MG PO; +LOSARTAN POTASS25 MG PO; +NOVOLOG 10100 UNITS/ SC; +PANTOPRAZOLE SO40 MG PO; +TYLENOL REGULA325 MG PO
[2017-07-04 22:35] LABS: HEMATOCRIT 35.5 % (38.0-50.0); MCH 28.7 PG (29.0-34.0); MCHC 33.8 G/DL (30.0-36.0); MCV 84.9 FL (86-99); PLATELET COUNT 203 K/uL (156-360); RBC DIS.WIDTH-SD 43.2 % (39-53); RED BLOOD COUNT 4.18 M/uL (4.00-5.50); WHITE BLOOD COUNT 8.9 K/uL (4.1-10.2)
[2017-07-04 22:43] LABS: CHLORIDE 92 mEq/L (99-109); POTASSIUM 3.5 mEq/L (3.7-5.4); SODIUM 138 mEq/L (136-147)
[2017-07-04 22:45] LABS: GLUCOSE 229 mg/dL (70-99)
[2017-07-04 22:49] LABS: CREATININE 2.9 mg/dL (0.6-1.3); GFR ESTIMATE (CALCULATED) 23 mL/min/ (58.99-99999); UREA NITROGEN (BUN) 23 mg/dL (9-23)
[2017-07-04 23:06] LABS: ALBUMIN 3.7 g/dL (3.2-4.8)
[2017-07-04 23:09] LABS: TOTAL PROTEIN 6.8 g/dL (6.4-8.3)
[2017-07-04 23:11] LABS: TOTAL BILIRUBIN 0.6 mg/dL (0.0-1.0)
[2017-07-04 23:12] LABS: ALKALINE PHOSPHATASE 198 IU/L (3-129)
[2017-07-04 23:14] LABS: AST (GOT) 17 IU/L (2-34); DIRECT BILIRUBIN 0.2 mg/dL (0.0-0.3)
[2017-07-04 23:15] LABS: ALT (GPT) 16 IU/L (3-49); LIPASE 85 U/L (1.0-51.0)
[2017-07-04 23:18] LABS: TROP-I INTERPRETATION NEGATIVE; TROPONIN-I 0.02 ng/mL (0.0-0.30)
[2017-07-05 00:22] VITALS: BP 136/78
== END 2017-07-05 00:22 | disposition home or self-care (01) ==
LOC: EME 22:12
DX: R51 Headache (principal); I12.0 Hypertensive chronic kidney disease with stage 5 chronic kidney disease or end stage renal disease; E11.22 Type 2 diabetes mellitus with diabetic chronic kidney disease; E11.65 Type 2 diabetes mellitus with hyperglycemia; N18.6 End stage renal disease; Z99.2 Dependence on renal dialysis; I45.81 Long QT syndrome; R94.31 Abnormal electrocardiogram [ECG] [EKG]; I50.9 Heart failure, unspecified; K21.9 Gastro-esophageal reflux disease without esophagitis; G43.909 Migraine, unspecified, not intractable, without status migrainosus; F41.9 Anxiety disorder, unspecified; F32.9 Major depressive disorder, single episode, unspecified; I25.2 Old myocardial infarction; Z95.5 Presence of coronary angioplasty implant and graft; Z87.442 Personal history of urinary calculi
CPT/HCPCS: 70450; 71046; 80048; 80076; 83690; 84484; 85027; 93005; 99281; 99284

== ENCOUNTER 2017-09-13 05:53 | Day surgery (SDC) | payer OTHER ==
[~2017-09-13] VITALS: Ht 180.3 cm; Wt 97.5 kg
[~2017-09-13 05:53] MED LIST changes: +ADULT ASPIRIN81 MG PO; +ANTIBIOTIC; +APRESOLINE25 MG PO; +CALCIUM ACETAT667 MG PO; +COLACE100 MG PO; +LASIX80 MG PO; +MAGNESIUM400 M1 PO; +MARINOL5 MG PO; +NEPHRO-VITE,1 TABLET PO; +OMEPRAZOLE40 M1 PO; +PAXIL20 MG PO; +XANAX0.25 MG PO; +ZYLOPRIM100 MG PO
[2017-09-13 06:54] LABS: HEMATOCRIT 36.7 % (38.0-50.0); HEMOGLOBIN 12.3 G/DL (12.5-16.6); MCH 29.5 PG (29.0-34.0); MCHC 33.5 G/DL (30.0-36.0); PLATELET COUNT 215 K/uL (156-360); RBC DIS.WIDTH-SD 44.8 % (39-53); RED BLOOD COUNT 4.17 M/uL (4.00-5.50); WHITE BLOOD COUNT 10.8 K/uL (4.1-10.2)
[2017-09-13 07:14] LABS: CHLORIDE 97 MEQ/L (99-109); CREATININE 3.4 MG/DL (0.6-1.3); GFR ESTIMATE (CALCULATED) 19 mL/min/ (58.99-99999); GLUCOSE 141 mg/dL (70-99); SODIUM 140 MEQ/L (136-147); UREA NITROGEN (BUN) 52 mg/dL (9-23)
[2017-09-13 07:30] VITALS: BP 139/76
[2017-09-13 11:19] VITALS: BP 187/90
[2017-09-13 12:15] VITALS: BP 139/67
== END 2017-09-13 12:56 | disposition home or self-care (01) ==
LOC: SDC 05:53
PROVIDERS: Surgery
DX: I12.0 Hypertensive chronic kidney disease with stage 5 chronic kidney disease or end stage renal disease (principal); E11.22 Type 2 diabetes mellitus with diabetic chronic kidney disease; N18.6 End stage renal disease; Z99.2 Dependence on renal dialysis; Z79.4 Long term (current) use of insulin; E11.621 Type 2 diabetes mellitus with foot ulcer; I70.245 Atherosclerosis of native arteries of left leg with ulceration of other part of foot; L97.529 Non-pressure chronic ulcer of other part of left foot with unspecified severity; I45.81 Long QT syndrome
CPT/HCPCS: 80048; 82948; 85027; 87641; 93005; J0690; J1644; J2250; J2405; J2720; J3010

== ENCOUNTER 2017-09-14 18:43 | Emergency (ER) | payer OTHER ==
[~2017-09-14] VITALS: Ht 180.3 cm; Wt 100.4 kg
[2017-09-14 22:00] VITALS: BP 117/77
== END 2017-09-14 22:04 | disposition home or self-care (01) ==
LOC: EME 18:43
PROC: 0HQEXZZ Repair Left Lower Arm Skin, External Approach (ICD-10-PCS; principal; 2017-09-14)
DX: T82.838A Hemorrhage due to vascular prosthetic devices, implants and grafts, initial encounter (principal); I12.0 Hypertensive chronic kidney disease with stage 5 chronic kidney disease or end stage renal disease; N18.6 End stage renal disease; Z99.2 Dependence on renal dialysis; E11.22 Type 2 diabetes mellitus with diabetic chronic kidney disease; I50.9 Heart failure, unspecified; K21.9 Gastro-esophageal reflux disease without esophagitis; G43.909 Migraine, unspecified, not intractable, without status migrainosus; F41.9 Anxiety disorder, unspecified; F32.9 Major depressive disorder, single episode, unspecified; I25.2 Old myocardial infarction; Z79.02 Long term (current) use of antithrombotics/antiplatelets; Z79.82 Long term (current) use of aspirin; Z87.442 Personal history of urinary calculi; Z95.9 Presence of cardiac and vascular implant and graft, unspecified
CPT/HCPCS: 99281; 99284